=== PATIENT | male | born 1965 | race Asian ===

== ENCOUNTER 2020-10-27 09:14 | Emergency (ER) | payer OTHER ==
[2020-10-29 14:28] LABS: SARS-CoV-2 NAA DETECTED
== END 2020-10-27 10:31 | disposition home or self-care (01) ==
LOC: JVIRT 09:14
DX: U07.1 COVID-19 (principal)
CPT/HCPCS: C9803; Q3014-GT; U0003; U0005

== ENCOUNTER 2020-10-30 10:35 | Emergency (ER) | payer OTHER ==
[2020-10-30 11:02] VITALS: BMI 35.2
[2020-10-30] MEDS ORDERED: CASIRIVIMAB/IMDEVIMAB 10 ML in SODIUM CHLORIDE 100 ML IVPB ONE (11:40)
[2020-10-30 13:50] VITALS: BP 97/65; PULSE 71
[2020-10-30 13:52] VITALS: TEMP 98.1
== END 2020-10-30 14:33 | disposition home or self-care (01) ==
LOC: JER 10:35
DX: U07.1 COVID-19 (principal)
CPT/HCPCS: 99284-25; M0240; Q0240